=== PATIENT | female | born 1945 | race Caucasian/White ===

== ENCOUNTER → 2016-12-20 | Outpatient (CLI) | payer MEDICARE, OTHER ==
[~2016-12-20] MED LIST: ASPI-482 PO; CRESTOR5 MG PO; ESOM20CA PO; IOHEXOL 240 MG/ML 50ML VIAL. PO ONE; IOHEXOL 300 MG/ML 100ML VIAL. IV ONE; LISI2.5T PO
--- NOTE | 2016-12-20 09:50 | KCIC ---
PQRS STATEMENT One or more of the following individualized dose reduction techniques were utilized for this study: 1.Automated exposure control. 2.Adjustment of the mA and/orkVaccording to patient size. 3.Use of iterative reconstruction technique. Indication:Reason For Study Reason: RT LOWER QUADRANT PAIN / Spl. Instructions: 89cc Omni 300 / History: Pain for 6 months, no change in bowels, no surgery Comparison: none available Technique: multiple contiguous axial images were obtained through the abdomen and pelvis after intravenous administration of iodinated contrast. Coronal and sagittal reformations were created. Findings: The lung bases are clear. The heart size is normal. The liver is normal in size with no focal lesions identified. The gallbladder is nondistended. The pancreas is unremarkable. The spleen demonstrates a hypodense lesion measuring 7 millimeters which could represent a cyst. The adrenal glands are unremarkable. The kidneys demonstrate no hydronephrosis or mass. The abdominal aorta is normal in caliber. There is no ascites or adenopathy. The appendix is not identified but there is no pericecal inflammatory mass to suggest presence of acute appendicitis. The bowel loops are normal in caliber. The urinary bladder is within normal limits. No destructive osseous lesion is identified. Impression: - No ascites or inflammatory mass. The appendix is not identified but there is no pericecal inflammatory mass to suggest acute appendicitis. - 7 millimeter hypodense lesion within the spleen. This could represent a cyst but is incompletely evaluated on this study. Ultrasound could be performed if clinically warranted. Electronically signed by: Jamie Fonseca (Dec 20, 2016 09:48:45)
--- NOTE | 2016-12-20 10:03 | KCIC ---
Two views right hip Indication:Reason For Study Reason: / Spl. Instructions: / History: RIGHT HIP PAIN 6 MO, NO KNOWN INJURY FINDINGS There is no fracture or dislocation. No periosteal reaction or focal bone lesion. No volume loss or sclerosis of the femoral head. Visualized bones of the pelvis are within normal limits. IMPRESSION Negative exam of the right hip. Electronically signed by: Jamie Fonseca (Dec 20, 2016 10:01:38)
== END | disposition home or self-care (01) ==
LOC: KCIC CT 08:15
PROVIDERS: ATTEND Nurse Practitioner Family
DX: R10.31 Right lower quadrant pain (principal); M25.551 Pain in right hip
CPT/HCPCS: 73502; 74177; 82565; Q9966; Q9967

== ENCOUNTER → 2016-12-31 | Outpatient (CLI) | payer MEDICARE, OTHER ==
[~2016-12-31] MED LIST changes: -IOHEXOL 240 MG/ML 50ML VIAL. PO ONE; -IOHEXOL 300 MG/ML 100ML VIAL. IV ONE
--- NOTE | 2016-12-31 10:44 | KCIC ---
Examination: Ultrasound abdomen limited. HISTORY History of sub centimeter cyst on in the spleen on the CT. FINDINGS The spleen measures 8.8 centimeters in length. Examination is limited due to bowel gas. An obvious cystic structure in the spleen is not identified on this examination on the visualized images. Impression: Obvious cystic structure is not identified in the spleen on this examination however examination is limited due to bowel gas. Electronically signed by: Brody Polo (Dec 31, 2016 10:43:06)
== END | disposition home or self-care (01) ==
LOC: KCIC US 07:42
PROVIDERS: ATTEND Nurse Practitioner Family
DX: D73.4 Cyst of spleen (principal)
CPT/HCPCS: 76705

== ENCOUNTER → 2017-02-18 | Outpatient (CLI) | payer MEDICARE, OTHER ==
[~2017-02-18] MED LIST changes: +BUPIVACAINE MPF 0.5% 10 ML VIAL for KCIC. IJ ONE; +CONTRAST GIVEN MC PRN; +IOHEXOL 300 MG/ML 50 ML VIAL. INT ART ONE; +LIDOCAINE 1% Multi-Dose 20 ML VIAL. ID ONE; +methylPREDNISolone ACETATE 40 MG/ML VIAL. INT ART ONE
--- NOTE | 2017-02-18 15:59 | KCIC ---
PROCEDURE Therapeutic right hip injection using fluoroscopic guidance. HISTORY Hip pain. Pain is chronic TECHNIQUE The procedure was explained to the patient as were potential risks, including infection, bleeding or allergic reaction. All questions were answered. Informed written and verbal consent was obtained. The hip was prepped and draped in the usual sterile manner. Following administration of local anesthetic, a 22-gauge spinal needle was advanced into the hip joint without difficulty, with care taken to avoid the vascular structures. Stylet was removed and following negative aspiration, a mixture of 4 cc Omnipaque-300, 2 cc (80 mg) Depo-Medrol, 4 cc 0.5% Marcaine and 4 cc 1% lidocaine were injected without difficulty. Fluoroscopy demonstrates uniform and satisfactory distribution of the injection through the hip. The needle was removed. There was good hemostasis at the injection site. The patient left in stable condition without immediate complication. The patient was given postprocedural instructions, instructed to contact us or the emergency room if there are any complications. A single spot image was obtained. FLUOROSCOPY TIME: 36 seconds Electronically signed by: Devante Crews MD (02/18/2017 3:55 PM)
== END | disposition home or self-care (01) ==
LOC: KCIC 14:16
PROVIDERS: ATTEND Orthopaedic Surgery Sports Medicine
DX: M25.551 Pain in right hip (principal); G89.29 Other chronic pain
CPT/HCPCS: 20610; 77002; J1030; Q9967

== ENCOUNTER → 2017-12-31 | Outpatient (CLI) | payer MEDICARE, OTHER | END | disposition home or self-care (01) | LOC: KCIC MRI 09:01 | DX: M51.16 Intervertebral disc disorders with radiculopathy, lumbar region (principal); M48.061 Spinal stenosis, lumbar region without neurogenic claudication; M25.551 Pain in right hip | CPT/HCPCS: 72148 ==

== ENCOUNTER → 2018-01-15 | Outpatient (CLI) | payer MEDICARE, OTHER ==
[~2018-01-15] MED LIST changes: -ASPI-482 PO; -BUPIVACAINE MPF 0.5% 10 ML VIAL for KCIC. IJ ONE; -CONTRAST GIVEN MC PRN; -CRESTOR5 MG PO; -ESOM20CA PO; +IOHEXOL 180 MG/ML 10 ML VIAL.; -IOHEXOL 300 MG/ML 50 ML VIAL. INT ART ONE; -LIDOCAINE 1% Multi-Dose 20 ML VIAL. ID ONE; -LISI2.5T PO; +methylPREDNISolone ACETATE 40 MG/ML VIAL.; -methylPREDNISolone ACETATE 40 MG/ML VIAL. INT ART ONE; +methylPREDNISolone ACETATE 80 MG/ML VIAL.
== END | disposition home or self-care (01) ==
LOC: PNCL 08:35
DX: M51.16 Intervertebral disc disorders with radiculopathy, lumbar region (principal); I10 Essential (primary) hypertension; M19.90 Unspecified osteoarthritis, unspecified site; H91.90 Unspecified hearing loss, unspecified ear; Z90.710 Acquired absence of both cervix and uterus; Z90.49 Acquired absence of other specified parts of digestive tract; Z90.722 Acquired absence of ovaries, bilateral; Z98.890 Other specified postprocedural states; Z79.82 Long term (current) use of aspirin; Z79.899 Other long term (current) drug therapy
CPT/HCPCS: 62323; J1030; J1040; Q9965

== ENCOUNTER → 2018-02-19 | Outpatient (CLI) | payer MEDICARE, OTHER ==
[~2018-02-19] MED LIST changes: +LIDOCAINE 1% PF 2 ML VIAL.
== END | disposition home or self-care (01) ==
LOC: PNCL 10:32
DX: M51.16 Intervertebral disc disorders with radiculopathy, lumbar region (principal); E78.00 Pure hypercholesterolemia, unspecified; I10 Essential (primary) hypertension; Z90.49 Acquired absence of other specified parts of digestive tract; K21.9 Gastro-esophageal reflux disease without esophagitis; Z90.710 Acquired absence of both cervix and uterus; Z90.721 Acquired absence of ovaries, unilateral; M19.90 Unspecified osteoarthritis, unspecified site
CPT/HCPCS: 62323; J1030; J1040; Q9965

== ENCOUNTER → 2018-04-08 | Outpatient (CLI) | payer MEDICARE, OTHER ==
[2018-04-08] MEDS: IOHEXOL 300 MG/ML 100ML VIAL. IV (08:58)
== END | disposition home or self-care (01) ==
LOC: KCIC CT 08:25
DX: E27.8 Other specified disorders of adrenal gland (principal); M47.896 Other spondylosis, lumbar region; I10 Essential (primary) hypertension; E78.5 Hyperlipidemia, unspecified; E78.00 Pure hypercholesterolemia, unspecified; K21.9 Gastro-esophageal reflux disease without esophagitis; Z90.710 Acquired absence of both cervix and uterus
CPT/HCPCS: 74170; Q9967

== ENCOUNTER → 2018-07-02 | Outpatient (CLI) | payer MEDICARE, OTHER ==
[2018-01-30 08:38] VITALS: BP 176/74
[~2018-07-02] MED LIST changes: +ACET325T9 PO; +ACET500T68 PO; +ASPI-482 PO; +CALC500T30 PO; +CRESTOR5 MG PO; +ESOM20CA PO; -IOHEXOL 180 MG/ML 10 ML VIAL.; -LIDOCAINE 1% PF 2 ML VIAL.; +LISI2.5T PO; +LOSA100T7 PO; +LOSA25TA5 PO; +MULT-245 PO; +OMEP20TA63 PO; -methylPREDNISolone ACETATE 40 MG/ML VIAL.; -methylPREDNISolone ACETATE 80 MG/ML VIAL.
--- NOTE | 2018-07-02 10:28 | KCIC ---
CHEST PA LATERAL dated 07/02/2018 8:00 AM. Comparison: None. Clinical Indication: Cough. Findings: PA and lateral views obtained. Heart and mediastinal contours within normal limits. There is mild patchy increased density at the left lung base posteriorly. Lungs are otherwise clear. No pleural effusion or pneumothorax. Impression: 1. Patchy left basilar opacity, atelectasis versus early pneumonia. Electronically signed by: Devante Barclay MD (07/02/2018 10:25 AM) [email or web address]
--- NOTE | 2018-07-02 12:15 | KCIC ---
MRI right shoulder without contrast dated 07/02/2018 8:17 AM Indication: Shoulder pain limited range of motion. . .. Comparison: No comparison is available. Technique: Routine multiplanar multisequence imaging performed. . Findings: Intermediate T2 signal throughout the supraspinatus and infraspinatus portions of the rotator cuff. There is articular surface partial tearing of the supraspinatus footplate extending 60-70% thickness. There is also some undersurface partial tearing at the supraspinatus critical zone. There are articular surface fibers that are retracted to about the 12:00 position. No definite full-thickness tear. The infraspinatus is intact. There is increased signal and thickening of the subscapularis which is otherwise intact. There is intermediate T2 signal within the substance of the long head biceps tendon proximally. Extra articular portion courses within the bicipital groove. Biceps anchor intact. Mild hypertrophic change of the AC joint. No significant undersurface spurring. Acromion is type IV morphology. Trace subacromial/subdeltoid bursal fluid. Mild degenerative change of the glenohumeral joint with mild thinning of the glenoid articular cartilage. There is blunted morphology of the anterior and posterior labrum. No displaced labral tear or para labral cyst. Small glenohumeral joint effusion. No loose body. Suprascapular and spinoglenoid notches are clear. No significant muscle edema. There is mild muscle atrophy. IMPRESSION: Rotator cuff tendinopathy with moderate to high-grade partial tearing of the supraspinatus footplate. There is mild retraction of undersurface fibers to about the 12:00 position. No full-thickness tear. 2. Mild AC joint arthropathy with undersurface spurring. 3. Moderate biceps tendinopathy. 4. Mild degenerative arthrosis and chondral malacia the glenohumeral joint. There is degenerative tearing of the anterior and posterior labrum Electronically signed by: Devante Barclay MD (07/02/2018 12:12 PM) [email or web address]
== END | disposition home or self-care (01) ==
LOC: KCIC MRI 07:34
PROVIDERS: ATTEND Nurse Practitioner Family
DX: S43.491A Other sprain of right shoulder joint, initial encounter (principal); M19.011 Primary osteoarthritis, right shoulder; M62.511 Muscle wasting and atrophy, not elsewhere classified, right shoulder; M25.411 Effusion, right shoulder; R91.8 Other nonspecific abnormal finding of lung field; X58.XXXA Exposure to other specified factors, initial encounter; Y93.89 Activity, other specified; Y92.89 Other specified places as the place of occurrence of the external cause; Y99.8 Other external cause status
CPT/HCPCS: 71046; 73221

== ENCOUNTER → 2019-08-09 | Outpatient (CLI) | payer MEDICARE, OTHER ==
[2018-01-30 08:38] VITALS: BP 176/74
[~2019-08-09] MED LIST changes: +LOSA100T14 PO; -LOSA100T7 PO; -LOSA25TA5 PO; +LOSA25TA54 PO
--- NOTE | 2019-08-10 09:46 | KCIC ---
MR of the left knee HISTORY: Chronic pain, worse the past week. Posterior pain. TECHNIQUE: Routine multiplanar sequences are obtained. FINDINGS: Degenerative tear of the posterior horn and root attachment of the medial meniscus with moderate medial subluxation. No evidence of lateral meniscal tear. Anterior and posterior cruciate ligaments are intact. Mild proximal thickening of the medial collateral ligament compatible with scarring or sprain. No acute disruption. Iliotibial band unremarkable. Fibular collateral ligament, biceps femoris tendon and popliteus tendon are intact. Extensor mechanism is intact. Moderate joint effusion. Small Mckeon's cyst. Disorganized fluid dissecting distally into the calf compatible with rupture or leakage. Soft tissue edema around the knee. No acute fracture. No aggressive bone destruction. Severe chondromalacia at the medial joint compartment. Severe patellofemoral joint chondromalacia. [id number] chondromalacia at the lateral joint compartment. IMPRESSION: 1. Medial meniscal tear. 2. Mckeon's cyst with rupture or dissection into the calf. 3. DJD. Electronically signed by: Devante Crews MD (08/10/2019 9:43 AM) [email or web address]
== END | disposition home or self-care (01) ==
LOC: KCIC MRI 16:42
PROVIDERS: ATTEND Nurse Practitioner Family
DX: S83.242A Other tear of medial meniscus, current injury, left knee, initial encounter (principal); M71.22 Synovial cyst of popliteal space [Baker], left knee; M17.12 Unilateral primary osteoarthritis, left knee; M94.262 Chondromalacia, left knee; G89.29 Other chronic pain; X58.XXXA Exposure to other specified factors, initial encounter; Y93.89 Activity, other specified; Y92.89 Other specified places as the place of occurrence of the external cause; Y99.8 Other external cause status
CPT/HCPCS: 73721

== ENCOUNTER → 2020-04-11 | Outpatient (CLI) | payer MEDICARE, OTHER ==
[2018-01-30 08:38] VITALS: BP 176/74
--- NOTE | 2020-04-11 08:13 | RAD ---
EXAM: Pelvic sonogram. HISTORY: Pain. TECHNIQUE: Sonographic imaging of the pelvis was performed. COMPARISON: None. FINDINGS: The uterus and ovaries are surgically absent. No pelvic free fluid is seen. There is no pelvic mass or cyst. The bladder is unremarkable. IMPRESSION: 1. Surgically absent uterus and ovaries. 2. Otherwise, unremarkable pelvic sonogram. Electronically signed by: Lynda Correa MD (04/11/2020 8:11 AM) [id number]
== END | disposition home or self-care (01) ==
LOC: US 06:30
PROVIDERS: ATTEND Nurse Practitioner Family
DX: R10.2 Pelvic and perineal pain (principal); Z90.710 Acquired absence of both cervix and uterus; Z90.722 Acquired absence of ovaries, bilateral
CPT/HCPCS: 76856

== ENCOUNTER → 2021-06-20 | Outpatient (CLI) | payer MEDICARE, OTHER ==
[2018-01-30 08:38] VITALS: BP 176/74
[~2021-06-20] MED LIST changes: -LISI2.5T PO; +LISI2.5T12 PO
--- NOTE | 2021-06-20 10:48 | KCIC ---
EXAM: Chest, 2 views. HISTORY: Chronic dry cough. COMPARISON: 07/02/2018 FINDINGS: 2 views of the chest are obtained. There is no infiltrate, pleural effusion or pneumothorax . The heart is normal in size. IMPRESSION: No acute pulmonary finding. Electronically signed by: Lynda Correa MD (06/20/2021 10:45 AM) [id number]
== END ==
LOC: KCIC 09:15
PROVIDERS: ATTEND Family Medicine
DX: R05.3 Chronic cough (principal)
CPT/HCPCS: 71046